=== PATIENT | female | born 1975 | race Caucasian/White ===

== ENCOUNTER 2025-07-07 09:13 | Inpatient (IN) | payer MEDICAID ==
[~2025-07-07] VITALS: Ht 165.1 cm; Wt 94.8 kg
[~2025-07-07 09:13] MED LIST: METF-414
[2025-07-07 09:24] VITALS: O2SAT 100
[2025-07-07 10:59] LABS: BASOPHILS % 0.2 % (0.0-2.0); EOSINOPHILS % 0.3 % (0.0-5.0); HEMATOCRIT. 34.4 % (36.0-48.0); HEMOGLOBIN. 11.4 g/dL (12.0-16.0); LYMPHOCYTES % 15.0 % (20.0-50.0); MEAN PLATELET VOLUME 7.4 fl (7.4-10.4); MONOCYTES % 4.5 % (2.0-8.0); NEUTROPHILS % 80.0 % (40.0-76.0); PLATELET 354 x1000/uL (130-400); RED BLOOD CELL COUNT 4.22 mill/uL (4.2-5.4); RED CELL DISTRIBUTION WIDTH 15.4 % (11.6-14.6)
[2025-07-07 11:10] LABS: CREATININE 1.2 mg/dL (0.6-1.0); INR 1.0
[2025-07-07 11:11] LABS: UREA NITROGEN BLOOD 17 mg/dL (9-23)
[2025-07-07] MEDS: VANCOMYCIN 1G PREMIX 200 ML IV SCH (11:11)
[2025-07-07 11:12] LABS: ASPARTATE AMINOTRANSFERASE 10 IU/L (<34)
[2025-07-07 11:13] LABS: BILIRUBIN DIRECT 0.1 mg/dL (<=3.0); BILIRUBIN TOTAL 0.4 mg/dL (0.1-1.0); PROTEIN TOTAL 8.1 g/dL (6.0-8.3)
[2025-07-07 11:20] LABS: CLARITY URINE CLEAR (CLEAR); COLOR URINE YELLOW (YELLOW); GLUCOSE URINE 3+ (NEGATIVE); KETONES URINE 2+ (NEGATIVE); LEUKOCYTE ESTERASE URINE NEGATIVE (NEGATIVE); NITRITE URINE NEGATIVE (NEGATIVE); OCCULT BLOOD URINE 1+ (NEGATIVE); PH URINE 5.0 (4.5-8.0); PROTEIN URINE 2+ (NEGATIVE); SPECIFIC GRAVITY URINE 1.037 (1.005-1.030); UROBILINOGEN URINE 0.2 E.U./dL (0.2-1.0)
[2025-07-07 11:42] LABS: BACTERIA URINE TRACE; RBC URINE 0-2 /hpf (0-2); SQUAMOUS EPITHELIAL CELL URINE 2+ /lpf (RARE/1+); WBC URINE 0-2 /hpf (0-2); YEAST URINE NONE SEEN
[2025-07-07 13:10] VITALS: BP 156/72; PULSE 93; RESP 18; TEMP 36.3068
[2025-07-07] MEDS ORDERED: ATOR40TA70 PO (14:26)
[2025-07-07] MEDS ORDERED: LISI40TA21 PO (14:26)
[2025-07-07] MEDS ORDERED: HYDR12.54 (14:26)
[2025-07-07] MEDS ORDERED: ONDANSETRON HCL 4MG/2ML INJ IV PRN (14:30)
[2025-07-07] MEDS ORDERED: DEXTROSE 50% WATER 50ML SYRINGE IV PRN (14:30)
[2025-07-07] MEDS: LISINOPRIL 40MG TABLET PO SCH (14:59)
[2025-07-07] MEDS: HYDROCHLOROTHIAZIDE 12.5MG CAPSULE PO SCH (14:59)
[2025-07-07] MEDS: PIPERACILLIN/TAZO 3.375G/50ML 50 ML IV SCH (15:00)
[2025-07-07 16:00] VITALS: BP 154/71; PULSE 99; RESP 19; TEMP 36.4; O2SAT 99
[2025-07-07] MEDS: ACETAMINOPHEN 325MG TABLET PO PRN (16:36)
[2025-07-07] MEDS: BLOOD SUGAR DIAGNOSTIC STRIP TEST SCH (17:24)
[2025-07-07] MEDS: LACTOBACILLUS RHAMNOSUS GG CAP PO SCH (18:18)
[2025-07-07] MEDS: INSULIN LISPRO 100 UNITS/ML SUBCUT SCH (18:20)
[2025-07-07 20:00] VITALS: BP 114/51; PULSE 92; RESP 16; TEMP 36.1; O2SAT 95
[2025-07-07] MEDS: ATORVASTATIN CALCIUM 40MG TABLET PO SCH (20:50)
[2025-07-07] MEDS: VANCOMYCIN 750MG/150ML (BAXTER) IV SCH (20:50)
[2025-07-07] MEDS: CLINDAMYCIN 600MG PREMIX 50 ML IV SCH (20:50)
[2025-07-08] VITALS: BP 139/60; PULSE 87; RESP 17; TEMP 36.8; O2SAT 98
[2025-07-08 04:00] VITALS: BP 123/58; PULSE 86; RESP 17; TEMP 36.6; O2SAT 98
[2025-07-08 06:51] LABS: BASOPHILS % 0.3 % (0.0-2.0); EOSINOPHILS % 1.2 % (0.0-5.0); HEMATOCRIT. 32.5 % (36.0-48.0); HEMOGLOBIN. 10.8 g/dL (12.0-16.0); LYMPHOCYTES % 20.9 % (20.0-50.0); MEAN PLATELET VOLUME 7.4 fl (7.4-10.4); MONOCYTES % 5.7 % (2.0-8.0); NEUTROPHILS % 71.9 % (40.0-76.0); PLATELET 348 x1000/uL (130-400); RED BLOOD CELL COUNT 4.02 mill/uL (4.2-5.4); RED CELL DISTRIBUTION WIDTH 15.3 % (11.6-14.6)
[2025-07-08 07:20] LABS: CREATININE 1.1 mg/dL (0.6-1.0)
[2025-07-08 07:21] LABS: UREA NITROGEN BLOOD 14.0 mg/dL (9-23)
[2025-07-08 08:00] VITALS: BP 118/64; PULSE 84; RESP 18; TEMP 36.6; O2SAT 98
[2025-07-08] MEDS: VANCOMYCIN 1.25GM/250ML IV SCH (08:46)
[2025-07-08] MEDS: PANTOPRAZOLE SODIUM 40 MG/VIAL IV SCH (08:46)
[2025-07-08 12:00] VITALS: BP 130/60; PULSE 80; RESP 18; TEMP 36.4; O2SAT 97
[2025-07-08 16:00] VITALS: BP 122/66; PULSE 87; RESP 17; TEMP 36.5; O2SAT 98
[2025-07-08 20:00] VITALS: BP 131/69; PULSE 90; RESP 18; TEMP 36.7; O2SAT 97
[2025-07-09 04:00] VITALS: BP 109/59; PULSE 83; RESP 18; TEMP 36.9; O2SAT 97
[2025-07-09 06:52] LABS: BASOPHILS % 0.6 % (0.0-2.0); EOSINOPHILS % 1.5 % (0.0-5.0); HEMATOCRIT. 32.9 % (36.0-48.0); HEMOGLOBIN. 10.6 g/dL (12.0-16.0); LYMPHOCYTES % 22.9 % (20.0-50.0); MEAN PLATELET VOLUME 7.2 fl (7.4-10.4); MONOCYTES % 6.4 % (2.0-8.0); NEUTROPHILS % 68.6 % (40.0-76.0); PLATELET 356 x1000/uL (130-400); RED BLOOD CELL COUNT 4.02 mill/uL (4.2-5.4); RED CELL DISTRIBUTION WIDTH 14.8 % (11.6-14.6)
[2025-07-09 07:01] LABS: CREATININE 1.3 mg/dL (0.6-1.0); UREA NITROGEN BLOOD 15.0 mg/dL (9-23)
[2025-07-09 08:00] VITALS: BP 134/62; PULSE 81; RESP 18; TEMP 36.7; O2SAT 99
[2025-07-09 12:00] VITALS: BP 144/71; PULSE 87; RESP 17; TEMP 36.8; O2SAT 97
[2025-07-09 15:07] LABS: UCG SCREEN NEGATIVE
[2025-07-09 15:08] LABS: UCG KIT EXPIRATION DATE 031127; UCG KIT LOT# 0000982192
[2025-07-09] MEDS ORDERED: INSU100I28 SQ (15:40)
[2025-07-09] MEDS ORDERED: INSLIS SUBCUT (15:40)
[2025-07-09 16:00] VITALS: BP 149/73; PULSE 88; RESP 18; TEMP 36.8; O2SAT 98
[2025-07-09] MEDS: LIDOCAINE HCL 1% 20ML VIAL INFIL NR (17:07)
[2025-07-09] MEDS: VANCOMYCIN 1G PREMIX 200 ML IV SCH (18:51)
[2025-07-09 20:00] VITALS: BP 118/60; PULSE 90; RESP 16; TEMP 36.6; O2SAT 97
[2025-07-09] MEDS: INSULIN GLARGINE 100 UNITS/ML SUBCUT SCH (22:52)
[2025-07-10] VITALS (7 sets, daily range): BP systolic 119–132; BP diastolic 52–70; PULSE 79–89; RESP 14–19; TEMP 36.2–37; O2SAT 97–99
[2025-07-10] MEDS: INSULIN LISPRO 100 UNITS/ML SUBCUT SCH (09:01)
[2025-07-10 11:39] LABS: PLATELET 368 x1000/uL (130-400); RED BLOOD CELL COUNT 3.86 mill/uL (4.2-5.4); RED CELL DISTRIBUTION WIDTH 15.4 % (11.6-14.6)
[2025-07-10 11:56] LABS: CREATININE 1.3 mg/dL (0.6-1.0); UREA NITROGEN BLOOD 20.0 mg/dL (9-23)
[2025-07-10] MEDS: VANCOMYCIN 1.25GM/250ML 250 ML IV SCH (15:41)
[2025-07-11] VITALS: BP 133/65; PULSE 78; RESP 18; TEMP 36.1; O2SAT 100
[2025-07-11 04:00] VITALS: BP 118/58; PULSE 77; RESP 18; TEMP 36.2; O2SAT 97
[2025-07-11 08:00] VITALS: BP 131/69; PULSE 8; RESP 16; TEMP 37; O2SAT 98
[2025-07-11] MEDS: FAMOTIDINE 20MG/2ML VIAL IV SCH (08:36)
[2025-07-11 12:00] VITALS: BP 135/69; PULSE 82; RESP 17; TEMP 36.3; O2SAT 98
[2025-07-11 16:00] VITALS: BP 129/72; PULSE 76; RESP 18; TEMP 36.9; O2SAT 99
[2025-07-11 20:00] VITALS: BP 119/62; PULSE 80; RESP 18; TEMP 36.7; O2SAT 95
[2025-07-11] MEDS: INSULIN GLARGINE 100 UNITS/ML SUBCUT SCH (22:13)
[2025-07-12] VITALS: RESP 18
[2025-07-12 04:00] VITALS: BP 110/52; PULSE 70; RESP 18; TEMP 36.2
[2025-07-12] MEDS ORDERED: LIDOCAINE HCL 1% 10 MG/ML 10ML VIAL ONE (07:13)
[2025-07-12 08:00] VITALS: BP 132/79; PULSE 80; RESP 17; TEMP 36.4
[2025-07-12 12:00] VITALS: BP 122/66; PULSE 77; RESP 18; TEMP 36.5
[2025-07-12] MEDS ORDERED: INSULIN LISPRO 100 UNITS/ML SUBCUT SCH (15:30)
[2025-07-12 16:00] VITALS: BP 140/76; PULSE 80; RESP 17; TEMP 36.6
[2025-07-12 17:07] VITALS: BP 140/76; PULSE 80; RESP 17; TEMP 97.5
[2025-07-12] MEDS ORDERED: INSULIN GLARGINE 100 UNITS/ML SUBCUT SCH (22:00)
== END 2025-07-12 17:40 | disposition home health service (06) | DRG 720 ==
LOC: ER 09:13 → 8EST 12:22 → EDBEDREQ 12:24 → EDBEDREQTM 12:24 → ENRESERV 12:28
PROVIDERS: ADMIT Internal Medicine; ATTEND Internal Medicine
PROC: 0Y9N3ZZ Drainage of Left Foot, Percutaneous Approach (ICD-10-PCS; principal; 2025-07-09)
PROC: 02HV33Z Insertion of Infusion Device into Superior Vena Cava, Percutaneous Approach (ICD-10-PCS; 2025-07-12)
PROC: B5181ZA Fluoroscopy of Superior Vena Cava using Low Osmolar Contrast, Guidance (ICD-10-PCS; 2025-07-12)
PROC: B548ZZA Ultrasonography of Superior Vena Cava, Guidance (ICD-10-PCS; 2025-07-12)
DX: A41.9 Sepsis, unspecified organism (principal); E11.52 Type 2 diabetes mellitus with diabetic peripheral angiopathy with gangrene; J98.2 Interstitial emphysema; M86.172 Other acute osteomyelitis, left ankle and foot; D64.9 Anemia, unspecified; E11.69 Type 2 diabetes mellitus with other specified complication; E66.9 Obesity, unspecified; I10 Essential (primary) hypertension; L03.032 Cellulitis of left toe; S91.242A Puncture wound with foreign body of left great toe with damage to nail, initial encounter; X58.XXXA Exposure to other specified factors, initial encounter; Y93.89 Activity, other specified; Y92.89 Other specified places as the place of occurrence of the external cause; Y99.8 Other external cause status; Z68.34 Body mass index [BMI] 34.0-34.9, adult; Z79.4 Long term (current) use of insulin; Z98.891 History of uterine scar from previous surgery; Z79.899 Other long term (current) drug therapy
CPT/HCPCS: 36415; 71045; 73700; 73721; 77001; 80048; 80076; 80202; 81003; 81025; 82962; 83036; 83605; 84145; 85025; 85027; 87070; 87077; 87106; 93923; 97161; 99285; C1725; J1308; J1815; J2003; J2470; J2543; J3373; J3490